=== PATIENT | female | born 1990 | race Caucasian/White ===

== ENCOUNTER 2021-08-27 12:53 | Inpatient (IN) | payer MEDICAID, SELFPAY ==
[~2021-08-27] VITALS: Ht 170.2 cm; Wt 50.1 kg
[~2021-08-27 12:53] MED LIST: BENZ1TAB42 IM; COGENTIN IM; CYPR4TAB PO; EFFEXOR XR PO; FLUO10TA2 OR; HALD5INJ2 IM; HALO10TA4 IM; HALO10TA4 OR; HALO1TAB21 PO; VITMTA PO; ZYPR5TAB OR
[2021-08-27 13:37] LABS: HEMATOCRIT 42.7 % (36.0-47.0); HEMOGLOBIN 13.9 g/dl (12.0-15.5); MEAN CORPUSCULAR HEMOGLOBIN 30.3 pg (27.0-33.0); MEAN CORPUSCULAR HGB CONC 32.6 g/dl (32.0-36.5); MEAN CORPUSCULAR VOLUME 93.2 fl (80.0-96.0); PLATELET COUNT, AUTOMATED 291 10^3/uL (150-450); RED BLOOD COUNT 4.58 10^6/uL (4.00-5.40); WHITE BLOOD COUNT 10.7 10^3/uL (4.0-10.0)
[2021-08-27 14:06] LABS: HCG, SERUM QUALITATIVE NEGATIVE (NEGATIVE); RSV AMPLIFICATION NEGATIVE (NEGATIVE)
[2021-08-27 14:10] LABS: ACETAMINOPHEN LEVEL < 2.0 UG/ML (10.0-30.0); ALBUMIN 3.8 GM/DL (3.2-5.2); ALT/SGPT 24 U/L (12-78); BILIRUBIN,DIRECT 0.1 MG/DL (0.0-0.2); BILIRUBIN,TOTAL 0.3 MG/DL (0.2-1.0); BLOOD UREA NITROGEN 13 MG/DL (7-18); CARBON DIOXIDE LEVEL 29 MEQ/L (21-32); CHLORIDE LEVEL 107 MEQ/L (98-107); CREATININE FOR GFR 1.02 MG/DL (0.55-1.30); ETHYL ALCOHOL (ETHANOL) < 0.003 % (0.000-0.010); GLOMERULAR FILTRATION RATE > 60.0 (>60); GLUCOSE, FASTING 113 MG/DL (70-100); POTASSIUM SERUM 4.2 MEQ/L (3.5-5.1); SALICYLATE LEVEL < 1.7 MG/DL (5.0-30.0); SODIUM LEVEL 141 MEQ/L (136-145); TOTAL PROTEIN 7.6 GM/DL (6.4-8.2)
[2021-08-27] MEDS ORDERED: MOM 30ML SUSPENSION UDC PO PRN (21:05)
[2021-08-27] MEDS ORDERED: OLANZapine ORAL DISINTEGRATING TAB 5MG PO PRN (21:05)
[2021-08-27] MEDS ORDERED: ACETAMINOPHEN TAB 650MG DOSE (2X325MG) PO PRN (21:05)
[2021-08-27] MEDS ORDERED: MAALOX 30 ML SUSP *UDC PO PRN (21:05)
[2021-08-27] MEDS ORDERED: traZODone 50 MG TAB PO PRN (21:05)
[2021-08-27 23:00] VITALS: BP 128/72
[2021-08-28] MEDS ORDERED: LORazepam 1 MG TAB PO PRN (01:20)
[2021-08-28 06:22] VITALS: BP 108/64
[2021-08-28] MEDS: OLANZapine 5 MG TAB PO SCH ×2 (09:00→21:00)
[2021-08-28 16:30] VITALS: BP 102/60
[2021-08-28] MEDS ORDERED: OLANZapine 2.5MG TABLET PO SCH (21:00)
[2021-08-29] MEDS: OLANZapine 5 MG TAB PO SCH ×3 (09:00→21:00)
[2021-08-30 06:00] VITALS: BP 118/73
[2021-08-30] MEDS: OLANZapine 5 MG TAB PO SCH (09:00)
[2021-08-30] MEDS ORDERED: LORazepam 1 MG TAB PO PRN (12:00)
[2021-08-30] MEDS: LORazepam 1 MG TAB PO SCH ×2 (14:35→21:00)
[2021-08-30 16:18] VITALS: BP 100/71
[2021-08-31 06:17] VITALS: BP 118/79
[2021-08-31 07:30] LABS: ALBUMIN 3.8 GM/DL (3.2-5.2); ALT/SGPT 25 U/L (12-78); BILIRUBIN,TOTAL 0.3 MG/DL (0.2-1.0); BLOOD UREA NITROGEN 17 MG/DL (7-18); CALCIUM LEVEL 9.2 MG/DL (8.5-10.1); CARBON DIOXIDE LEVEL 24 MEQ/L (21-32); CHLORIDE LEVEL 110 MEQ/L (98-107); CREATININE FOR GFR 0.85 MG/DL (0.55-1.30); GLOMERULAR FILTRATION RATE > 60.0 (>60); GLUCOSE, FASTING 92 MG/DL (70-100); POTASSIUM SERUM 4.1 MEQ/L (3.5-5.1); SODIUM LEVEL 143 MEQ/L (136-145); TOTAL PROTEIN 7.9 GM/DL (6.4-8.2)
[2021-08-31] MEDS: LORazepam 1 MG TAB PO SCH ×2 (09:00→20:27)
[2021-08-31 16:08] VITALS: BP 117/73
[2021-09-01] MEDS: LORazepam 1 MG TAB PO SCH ×2 (09:00→22:06)
[2021-09-01 16:02] VITALS: BP 113/77
[2021-09-02 06:32] VITALS: BP 119/64
[2021-09-02] MEDS: LORazepam 1 MG TAB PO SCH ×2 (09:00→21:00)
[2021-09-03 06:00] VITALS: BP 109/72
[2021-09-03] MEDS: LORazepam 1 MG TAB PO SCH ×2 (09:00→21:00)
[2021-09-04 06:32] VITALS: BP 131/74
[2021-09-04] MEDS: LORazepam 1 MG TAB PO SCH (09:00)
[2021-09-04] MEDS ORDERED: HALOPERIDOL 5MG/ML VIAL (J1630 PER 1) IM ONE (09:30)
[2021-09-04] MEDS ORDERED: LORazepam 2 MG/ML VIAL IM ONE (09:45)
[2021-09-04] MEDS: HALOPERIDOL 5MG/ML VIAL (J1630 PER 1) IM SCH (21:00)
[2021-09-05 06:36] VITALS: BP 110/59
[2021-09-05] MEDS: HALOPERIDOL 5MG/ML VIAL (J1630 PER 1) IM SCH ×2 (09:05→21:03)
[2021-09-06 06:46] VITALS: BP 111/67
[2021-09-06] MEDS ORDERED: BENZTROPINE MESYLATE 2MG/2ML VIAL IM STA (09:47)
[2021-09-06] MEDS: HALOPERIDOL 5MG/ML VIAL (J1630 PER 1) IM SCH ×2 (10:13→22:07)
[2021-09-06] MEDS ORDERED: BENZTROPINE MESYLATE 2MG/2ML VIAL IM PRN (12:10)
[2021-09-06 18:45] VITALS: BP 132/80
[2021-09-06] MEDS ORDERED: BENZTROPINE MESYLATE 2MG/2ML VIAL IM ONE (21:00)
[2021-09-07 00:03] VITALS: BP 127/86
[2021-09-07 06:00] VITALS: BP 108/73
[2021-09-07] MEDS: HALOPERIDOL 5MG/ML VIAL (J1630 PER 1) IM SCH ×2 (10:06→22:14)
[2021-09-08 06:33] VITALS: BP 95/64
[2021-09-08] MEDS: HALOPERIDOL 5MG/ML VIAL (J1630 PER 1) IM SCH ×2 (10:02→22:08)
[2021-09-09 06:41] VITALS: BP 99/68
[2021-09-09] MEDS: HALOPERIDOL 5MG/ML VIAL (J1630 PER 1) IM SCH (09:16)
[2021-09-09 16:23] VITALS: BP 136/74
[2021-09-09] MEDS: BENZTROPINE 1 MG TAB PO SCH (20:19)
[2021-09-10 06:27] VITALS: BP 97/63
[2021-09-10] MEDS: BENZTROPINE 1 MG TAB PO SCH ×2 (07:55→22:34)
[2021-09-10 16:30] VITALS: BP 91/65
[2021-09-11 06:53] VITALS: BP 101/68
[2021-09-11] MEDS: BENZTROPINE 1 MG TAB PO SCH ×2 (10:13→21:45)
[2021-09-11 19:03] VITALS: BP 96/67
[2021-09-12 07:04] VITALS: BP 99/59
[2021-09-12] MEDS: BENZTROPINE 1 MG TAB PO SCH ×2 (09:45→20:28)
[2021-09-12 18:47] VITALS: BP 120/82
[2021-09-13 06:19] VITALS: BP 93/63
[2021-09-13] MEDS: BENZTROPINE 1 MG TAB PO SCH ×2 (09:42→21:12)
[2021-09-13 16:39] VITALS: BP 92/60
[2021-09-14 07:02] VITALS: BP 103/67
[2021-09-14] MEDS: BENZTROPINE 1 MG TAB PO SCH ×2 (10:03→20:14)
[2021-09-14 16:08] VITALS: BP 96/60
[2021-09-15 06:00] VITALS: BP 90/57
[2021-09-15] MEDS: BENZTROPINE 1 MG TAB PO SCH ×2 (07:52→20:11)
[2021-09-15 16:15] VITALS: BP 99/68
[2021-09-16 06:52] VITALS: BP 103/67
[2021-09-16] MEDS: BENZTROPINE 1 MG TAB PO SCH ×2 (08:39→20:08)
[2021-09-16 19:12] VITALS: BP 120/80
[2021-09-17 06:42] VITALS: BP 101/63
[2021-09-17] MEDS: BENZTROPINE 1 MG TAB PO SCH ×2 (08:12→20:38)
[2021-09-17 18:04] VITALS: BP 120/70
[2021-09-18 06:52] VITALS: BP 98/59
[2021-09-18] MEDS: BENZTROPINE 1 MG TAB PO SCH ×2 (08:21→19:55)
[2021-09-19 06:29] VITALS: BP 97/61
[2021-09-19] MEDS: BENZTROPINE 1 MG TAB PO SCH ×2 (08:27→20:02)
[2021-09-19 15:09] VITALS: BP 104/62
[2021-09-20 06:06] VITALS: BP 99/56
[2021-09-20] MEDS: BENZTROPINE 1 MG TAB PO SCH ×2 (08:11→19:58)
[2021-09-20 18:54] VITALS: BP 124/84
[2021-09-21 06:28] VITALS: BP 99/67
[2021-09-21] MEDS: BENZTROPINE 1 MG TAB PO SCH ×2 (08:05→20:10)
[2021-09-21 18:38] VITALS: BP 120/82
[2021-09-22 06:00] VITALS: BP 91/54
[2021-09-22] MEDS: BENZTROPINE 1 MG TAB PO SCH ×2 (08:05→19:54)
[2021-09-23 06:34] VITALS: BP 138/78
[2021-09-23] MEDS: BENZTROPINE 1 MG TAB PO SCH ×2 (08:29→19:59)
[2021-09-23 16:45] VITALS: BP 100/64
[2021-09-24 06:31] VITALS: BP 113/73
[2021-09-24] MEDS: BENZTROPINE 1 MG TAB PO SCH ×2 (08:09→19:55)
[2021-09-25 07:13] VITALS: BP 93/55
[2021-09-25] MEDS: BENZTROPINE 1 MG TAB PO SCH ×2 (08:46→20:31)
[2021-09-25] MEDS ORDERED: LORazepam 1 MG TAB PO ONE (11:30)
[2021-09-25 16:21] VITALS: BP 96/62
[2021-09-26] MEDS: BENZTROPINE 1 MG TAB PO SCH ×2 (08:27→20:21)
[2021-09-26 18:24] VITALS: BP 130/72
[2021-09-27 06:57] VITALS: BP 103/66
[2021-09-27] MEDS: BENZTROPINE 1 MG TAB PO SCH ×2 (08:06→21:00)
[2021-09-27 16:11] VITALS: BP 110/67
[2021-09-27] MEDS ORDERED: diphenhydrAMINE 50MG CAP PO STA (17:51)
[2021-09-27] MEDS ORDERED: LORazepam 2 MG TAB PO STA (17:51)
[2021-09-28 06:13] VITALS: BP 91/61
[2021-09-28] MEDS: BENZTROPINE 1 MG TAB PO SCH ×2 (08:31→19:52)
[2021-09-28 16:59] VITALS: BP 94/65
[2021-09-29 06:28] VITALS: BP 93/58
[2021-09-29] MEDS: BENZTROPINE 1 MG TAB PO SCH ×2 (08:12→20:23)
[2021-09-29] MEDS: OLANZapine ORAL DISINTEGRATING TAB 5MG PO PRN (10:48)
[2021-09-29 16:33] VITALS: BP 111/75
[2021-09-30 06:26] VITALS: BP 92/61
[2021-09-30] MEDS: BENZTROPINE 1 MG TAB PO SCH ×2 (08:13→21:16)
[2021-09-30] MEDS: OLANZapine ORAL DISINTEGRATING TAB 5MG PO PRN (09:18)
[2021-10-01 06:33] VITALS: BP 110/68
[2021-10-01] MEDS: BENZTROPINE 1 MG TAB PO SCH ×2 (08:21→21:26)
[2021-10-01] MEDS ORDERED: HALOPERIDOL 5MG/ML VIAL (J1630 PER 1) IM STA (10:04)
[2021-10-01] MEDS ORDERED: LORazepam 2 MG/ML VIAL IM STA (10:04)
[2021-10-02 06:51] VITALS: BP 95/62
[2021-10-02] MEDS: BENZTROPINE 1 MG TAB PO SCH ×2 (08:08→20:18)
[2021-10-02] MEDS: OLANZapine ORAL DISINTEGRATING TAB 5MG PO PRN (09:05)
[2021-10-02] MEDS ORDERED: LORazepam 2 MG TAB PO STA (11:54)
[2021-10-02] MEDS ORDERED: diphenhydrAMINE 25MG CAP PO ONE (11:55)
[2021-10-02 16:33] VITALS: BP 91/59
[2021-10-03 06:23] VITALS: BP 133/80
[2021-10-03] MEDS: BENZTROPINE 1 MG TAB PO SCH ×2 (08:00→20:01)
[2021-10-03 18:10] VITALS: BP 112/66
[2021-10-04 06:30] VITALS: BP 105/65
[2021-10-04] MEDS: BENZTROPINE 1 MG TAB PO SCH ×2 (08:03→20:06)
[2021-10-04] MEDS: OLANZapine ORAL DISINTEGRATING TAB 5MG PO PRN (08:46)
[2021-10-04] MEDS ORDERED: LORazepam 2 MG TAB PO STA (08:49)
[2021-10-04] MEDS ORDERED: diphenhydrAMINE 50MG CAP PO STA (08:49)
[2021-10-04 18:32] VITALS: BP 130/78
[2021-10-05 07:10] VITALS: BP 111/66
[2021-10-05] MEDS: BENZTROPINE 1 MG TAB PO SCH ×2 (08:35→19:47)
[2021-10-05] MEDS: OLANZapine ORAL DISINTEGRATING TAB 5MG PO PRN (08:37)
[2021-10-05 18:13] VITALS: BP 111/69
[2021-10-06 06:30] VITALS: BP 96/70
[2021-10-06] MEDS: BENZTROPINE 1 MG TAB PO SCH ×2 (08:05→20:01)
[2021-10-06] MEDS: OLANZapine ORAL DISINTEGRATING TAB 5MG PO PRN (08:49)
[2021-10-06 18:16] VITALS: BP 128/74
[2021-10-07 06:39] VITALS: BP 118/69
[2021-10-07] MEDS: BENZTROPINE 1 MG TAB PO SCH ×2 (07:52→19:57)
[2021-10-07] MEDS ORDERED: diphenhydrAMINE 50MG CAP PO STA (08:21)
[2021-10-07] MEDS ORDERED: LORazepam 2 MG TAB PO STA (08:21)
[2021-10-07 16:12] VITALS: BP 111/72
[2021-10-08 06:12] VITALS: BP 94/64
[2021-10-08] MEDS: BENZTROPINE 1 MG TAB PO SCH ×2 (07:17→19:49)
[2021-10-08 17:14] VITALS: BP 110/70
[2021-10-09 06:28] VITALS: BP 102/68
[2021-10-09] MEDS: OLANZapine ORAL DISINTEGRATING TAB 5MG PO PRN (07:36)
[2021-10-09] MEDS: BENZTROPINE 1 MG TAB PO SCH ×2 (08:06→20:00)
[2021-10-09 17:24] VITALS: BP 102/57
[2021-10-10 06:49] VITALS: BP 98/60
[2021-10-10] MEDS: BENZTROPINE 1 MG TAB PO SCH ×2 (08:11→20:09)
[2021-10-10 18:00] VITALS: BP 117/64
[2021-10-11 06:00] VITALS: BP 108/65
[2021-10-11] MEDS: BENZTROPINE 1 MG TAB PO SCH ×2 (08:27→19:57)
[2021-10-11] MEDS: LORazepam 2 MG TAB PO STA ×2 (08:44→08:47)
[2021-10-11] MEDS ORDERED: LORazepam 2 MG/ML VIAL IM STA (08:52)
[2021-10-11 18:00] VITALS: BP 106/71
[2021-10-12 06:52] VITALS: BP 116/74
[2021-10-12] MEDS: BENZTROPINE 1 MG TAB PO SCH ×2 (08:14→21:08)
[2021-10-12] MEDS: OLANZapine ORAL DISINTEGRATING TAB 5MG PO PRN ×2 (11:15→17:58)
[2021-10-12] MEDS ORDERED: HALOPERIDOL 5MG/ML VIAL (J1630 PER 1) IM ONE (11:30)
[2021-10-12] MEDS ORDERED: LORazepam 2 MG/ML VIAL IM ONE (11:30)
[2021-10-12 12:04] VITALS: BP 116/74
[2021-10-12 16:03] VITALS: BP 110/66
[2021-10-13 06:07] VITALS: BP 140/75
[2021-10-13] MEDS: BENZTROPINE 1 MG TAB PO SCH ×2 (08:22→21:48)
[2021-10-13] MEDS: OLANZapine ORAL DISINTEGRATING TAB 5MG PO PRN ×2 (08:54→18:52)
[2021-10-13 15:41] VITALS: BP 99/72
[2021-10-14 06:27] VITALS: BP 108/77
[2021-10-14] MEDS: BENZTROPINE 1 MG TAB PO SCH ×2 (08:21→20:00)
[2021-10-14] MEDS: OLANZapine ORAL DISINTEGRATING TAB 5MG PO PRN (17:51)
[2021-10-15 06:50] VITALS: BP 123/77
[2021-10-15] MEDS: BENZTROPINE 1 MG TAB PO SCH ×2 (08:03→20:14)
[2021-10-15] MEDS: OLANZapine ORAL DISINTEGRATING TAB 5MG PO PRN (10:10)
[2021-10-16 06:41] VITALS: BP 105/70
[2021-10-16] MEDS: BENZTROPINE 1 MG TAB PO SCH ×2 (08:11→20:04)
[2021-10-16] MEDS: OLANZapine ORAL DISINTEGRATING TAB 5MG PO PRN (08:34)
[2021-10-16 18:01] VITALS: BP 125/57
[2021-10-17 06:02] VITALS: BP 112/77
[2021-10-17] MEDS: BENZTROPINE 1 MG TAB PO SCH ×2 (08:12→20:10)
[2021-10-17] MEDS: OLANZapine ORAL DISINTEGRATING TAB 5MG PO PRN (08:38)
[2021-10-17 09:32] LABS: BASO % 0.5 % (0.0-1.0); HEMATOCRIT 40.1 % (36.0-47.0); HEMOGLOBIN 12.7 g/dl (12.0-15.5); LYMPH # 1.5 10^3/uL (1.5-5.0); LYMPH % 22.9 % (24.0-44.0); MEAN CORPUSCULAR HEMOGLOBIN 30.1 pg (27.0-33.0); MEAN CORPUSCULAR HGB CONC 31.7 g/dl (32.0-36.5); MONO # 0.4 10^3/uL (0.0-0.8); MONO % 6.3 % (2.0-8.0); NEUTROPHILS # 4.4 10^3/uL (1.5-8.5); NEUTROPHILS % 70.1 % (36.0-66.0); PLATELET COUNT, AUTOMATED 295 10^3/uL (150-450); RED BLOOD COUNT 4.22 10^6/uL (4.00-5.40); WHITE BLOOD COUNT 6.3 10^3/uL (4.0-10.0)
[2021-10-17 09:42] LABS: ALBUMIN 3.7 GM/DL (3.2-5.2); ALT/SGPT 47 U/L (12-78); BILIRUBIN,TOTAL 0.5 MG/DL (0.2-1.0); BLOOD UREA NITROGEN 16 MG/DL (7-18); CALCIUM LEVEL 9.4 MG/DL (8.5-10.1); CARBON DIOXIDE LEVEL 29 MEQ/L (21-32); CHLORIDE LEVEL 106 MEQ/L (98-107); CHOLESTEROL LEVEL 190 MG/DL (<200); CHOLESTEROL RISK RATIO 2.533 (<5); CREATININE FOR GFR 0.86 MG/DL (0.55-1.30); GLOMERULAR FILTRATION RATE > 60.0 (>60); GLUCOSE, FASTING 126 MG/DL (70-100); HDL CHOLESTEROL 75 MG/DL (>40); LDL CHOLESTEROL 101 MG/DL (<100); NON-HDL-C 115 MG/DL; POTASSIUM SERUM 4.1 MEQ/L (3.5-5.1); SODIUM LEVEL 142 MEQ/L (136-145); TOTAL PROTEIN 7.9 GM/DL (6.4-8.2); TRIGLYCERIDES LEVEL 69 MG/DL (<150)
[2021-10-17] MEDS ORDERED: LORazepam 2 MG TAB PO STA (10:07)
[2021-10-17 18:17] VITALS: BP 140/78
[2021-10-18 06:52] VITALS: BP 143/92
[2021-10-18] MEDS: BENZTROPINE 1 MG TAB PO SCH ×2 (08:10→20:35)
[2021-10-18] MEDS: OLANZapine ORAL DISINTEGRATING TAB 5MG PO PRN (08:15)
[2021-10-18 18:00] VITALS: BP 131/81
[2021-10-19 06:00] VITALS: BP 109/61
[2021-10-19] MEDS: BENZTROPINE 1 MG TAB PO SCH ×2 (08:07→19:57)
[2021-10-19 18:00] VITALS: BP 93/62
[2021-10-20 06:48] VITALS: BP 90/60
[2021-10-20] MEDS: BENZTROPINE 1 MG TAB PO SCH ×2 (08:04→20:24)
[2021-10-20 18:00] VITALS: BP 109/70
[2021-10-21 06:00] VITALS: BP 104/68
[2021-10-21] MEDS: BENZTROPINE 1 MG TAB PO SCH ×2 (08:17→20:11)
[2021-10-21 18:00] VITALS: BP 101/68
[2021-10-22 06:19] VITALS: BP 93/59
[2021-10-22] MEDS: BENZTROPINE 1 MG TAB PO SCH ×2 (08:16→20:10)
[2021-10-22 18:00] VITALS: BP 104/72
[2021-10-23 06:31] VITALS: BP 120/71
[2021-10-23] MEDS: BENZTROPINE 1 MG TAB PO SCH ×2 (08:01→19:49)
[2021-10-23 17:33] VITALS: BP 109/68
[2021-10-24 07:10] VITALS: BP 94/56
[2021-10-24] MEDS: BENZTROPINE 1 MG TAB PO SCH ×2 (08:13→20:33)
[2021-10-24 17:17] VITALS: BP 107/67
[2021-10-25 07:16] VITALS: BP 109/67
[2021-10-25] MEDS: BENZTROPINE 1 MG TAB PO SCH ×2 (08:00→20:23)
[2021-10-25 18:01] VITALS: BP 119/62
[2021-10-26 06:19] VITALS: BP 97/73
[2021-10-26] MEDS: BENZTROPINE 1 MG TAB PO SCH ×2 (07:58→20:12)
[2021-10-26 18:43] VITALS: BP 111/75
[2021-10-27 06:39] VITALS: BP 102/72
[2021-10-27] MEDS: BENZTROPINE 1 MG TAB PO SCH ×2 (08:03→20:46)
[2021-10-27 18:58] VITALS: BP 101/73
[2021-10-28 06:26] VITALS: BP 113/68
[2021-10-28] MEDS: BENZTROPINE 1 MG TAB PO SCH ×2 (07:58→20:35)
[2021-10-28 17:57] VITALS: BP 106/74
[2021-10-29 06:35] VITALS: BP 98/72
[2021-10-29] MEDS: BENZTROPINE 1 MG TAB PO SCH ×2 (08:13→20:06)
[2021-10-30 06:58] VITALS: BP 115/80
[2021-10-30] MEDS: BENZTROPINE 1 MG TAB PO SCH ×2 (08:04→20:07)
[2021-10-30 12:05] VITALS: BP 115/80
[2021-10-30 18:00] VITALS: BP 121/79
[2021-10-31 06:16] VITALS: BP 108/68
[2021-10-31 06:23] VITALS: BP 108/68
[2021-10-31] MEDS: BENZTROPINE 1 MG TAB PO SCH ×2 (07:54→20:05)
[2021-10-31 18:29] VITALS: BP 92/59
[2021-11-01 06:40] VITALS: BP 98/69
[2021-11-01] MEDS: BENZTROPINE 1 MG TAB PO SCH ×2 (08:00→20:25)
[2021-11-01 18:58] VITALS: BP 122/82
[2021-11-02 06:46] VITALS: BP 112/79
[2021-11-02] MEDS: BENZTROPINE 1 MG TAB PO SCH ×2 (08:01→20:40)
[2021-11-02 18:00] VITALS: BP 104/64
[2021-11-03 07:08] VITALS: BP 114/77
[2021-11-03] MEDS: BENZTROPINE 1 MG TAB PO SCH ×2 (08:01→20:22)
[2021-11-03 18:00] VITALS: BP 110/77
[2021-11-04 07:07] VITALS: BP 101/75
[2021-11-04] MEDS: BENZTROPINE 1 MG TAB PO SCH ×2 (08:02→20:10)
[2021-11-04 16:20] VITALS: BP 115/77
[2021-11-05 06:19] VITALS: BP 102/68
[2021-11-05] MEDS: BENZTROPINE 1 MG TAB PO SCH ×2 (08:00→20:47)
[2021-11-05 16:52] VITALS: BP 106/65
[2021-11-06 06:31] VITALS: BP 111/79
[2021-11-06] MEDS: BENZTROPINE 1 MG TAB PO SCH ×2 (07:53→20:08)
[2021-11-06 16:49] VITALS: BP 100/70
[2021-11-07 07:23] VITALS: BP 107/74
[2021-11-07] MEDS: BENZTROPINE 1 MG TAB PO SCH ×2 (07:46→20:34)
[2021-11-07] MEDS: OLANZapine ORAL DISINTEGRATING TAB 5MG PO PRN (09:15)
[2021-11-07 17:44] VITALS: BP 121/77
[2021-11-08 07:03] VITALS: BP 105/68
[2021-11-08] MEDS: BENZTROPINE 1 MG TAB PO SCH ×2 (08:01→20:02)
[2021-11-08 16:45] VITALS: BP 111/77
[2021-11-09 07:02] VITALS: BP 103/66
[2021-11-09] MEDS: BENZTROPINE 1 MG TAB PO SCH ×2 (08:07→20:13)
[2021-11-09 16:38] VITALS: BP 121/82
[2021-11-10 07:08] VITALS: BP 110/80
[2021-11-10] MEDS: BENZTROPINE 1 MG TAB PO SCH ×2 (07:52→20:43)
[2021-11-10 16:38] VITALS: BP 115/80
[2021-11-11 06:35] VITALS: BP 118/81
[2021-11-11] MEDS: BENZTROPINE 1 MG TAB PO SCH ×2 (07:46→20:34)
[2021-11-11 18:00] VITALS: BP 100/64
[2021-11-12 07:04] VITALS: BP 127/68
[2021-11-12] MEDS: BENZTROPINE 1 MG TAB PO SCH ×2 (08:00→20:56)
[2021-11-13 06:42] VITALS: BP 109/75
[2021-11-13] MEDS: BENZTROPINE 1 MG TAB PO SCH ×2 (08:09→20:05)
[2021-11-13 18:14] VITALS: BP 108/70
[2021-11-14 06:31] VITALS: BP 114/79
[2021-11-14] MEDS: BENZTROPINE 1 MG TAB PO SCH ×2 (07:53→20:10)
[2021-11-14 16:43] VITALS: BP 102/79
[2021-11-15 06:16] VITALS: BP 109/72
[2021-11-15] MEDS: BENZTROPINE 1 MG TAB PO SCH ×2 (08:00→19:54)
[2021-11-15 18:14] VITALS: BP 115/70
[2021-11-16 06:20] VITALS: BP 104/65
[2021-11-16] MEDS: BENZTROPINE 1 MG TAB PO SCH ×2 (07:40→20:01)
[2021-11-16 18:00] VITALS: BP 103/68
[2021-11-17 06:53] VITALS: BP 113/73
[2021-11-17] MEDS: BENZTROPINE 1 MG TAB PO SCH ×2 (07:34→19:56)
[2021-11-18 06:10] VITALS: BP 108/72
[2021-11-18] MEDS: BENZTROPINE 1 MG TAB PO SCH ×2 (07:50→20:06)
[2021-11-18 16:10] VITALS: BP 107/70
[2021-11-19 06:13] VITALS: BP 109/66
[2021-11-19] MEDS ORDERED: HALO5TAB33 PO ×2 (06:36→10:10)
[2021-11-19] MEDS ORDERED: HALO10TA20 PO ×2 (06:36→10:10)
[2021-11-19] MEDS ORDERED: BENZ-52 PO ×2 (06:36→10:10)
[2021-11-19] MEDS ORDERED: LORazepam 1 MG TAB PO ONE (07:40)
[2021-11-19] MEDS: BENZTROPINE 1 MG TAB PO SCH (07:51)
[2021-11-19] MEDS ORDERED: HOME MED LIST COMPLETE! XX SCH (10:10)
[2021-11-19] MEDS ORDERED: OLAN5ZYD PO (10:10)
[2021-11-19] MEDS ORDERED: TRAZ1TAB10 PO (10:10)
== END 2021-11-19 13:23 | DRG 750 ==
LOC: M ED 12:53 → M ED INP 21:03 → M PSY 23:00
PROVIDERS: ADMIT Psychiatry & Neurology Psychiatry; ATTEND Psychiatry & Neurology Psychiatry
DX: F20.0 Paranoid schizophrenia (principal); D72.829 Elevated white blood cell count, unspecified; Z79.899 Other long term (current) drug therapy; F20.2 Catatonic schizophrenia; F94.0 Selective mutism

== ENCOUNTER 2024-08-25 00:19 | Inpatient (IN) | payer MEDICAID, OTHER ==
[~2024-08-25] VITALS: Ht 162.6 cm; Wt 51.5 kg
[~2024-08-25 00:19] MED LIST changes: +BENZ1TAB5 PO; +HALO10TA20 PO; +HALO5TAB33 PO; +OLAN5ZYD PO; +TRAZ1TAB10 PO
[2024-08-25 01:23] LABS: HEMATOCRIT 28.5 % (36.0-47.0); HEMOGLOBIN 8.5 g/dl (12.0-15.5); MEAN CORPUSCULAR HEMOGLOBIN 24.4 pg (27.0-33.0); MEAN CORPUSCULAR HGB CONC 29.8 g/dl (32.0-36.5); MEAN CORPUSCULAR VOLUME 81.7 fl (80.0-96.0); PLATELET COUNT, AUTOMATED 402 10^3/uL (150-450); RED BLOOD COUNT 3.49 10^6/uL (4.00-5.40); WHITE BLOOD COUNT 10.3 10^3/uL (4.0-10.0)
[2024-08-25 01:43] LABS: AMPHETAMINES LEVEL URINE NEGATIVE (NEGATIVE); BARBITURATES URINE NEGATIVE (NEGATIVE); BENZODIAZEPINES URINE NEGATIVE (NEGATIVE); CANNABINOIDS URINE NEGATIVE (NEGATIVE); COCAINE METABOLITE URINE NEGATIVE (NEGATIVE); METHADONE URINE NEGATIVE (NEGATIVE); OPIATES URINE NEGATIVE (NEGATIVE); PHENCYCLIDINE URINE NEGATIVE (NEGATIVE)
[2024-08-25 01:46] LABS: ETHYL ALCOHOL (ETHANOL) < 0.003 % (0.000-0.010)
[2024-08-25 01:47] LABS: ALBUMIN 3.6 G/DL (3.2-5.2); ALKALINE PHOSPHATASE 62 U/L (35-104); ALT/SGPT 14 U/L (7.0-40); AST/SGOT 16 U/L (<34); BILIRUBIN,DIRECT < 0.1 MG/DL (<0.4); BILIRUBIN,TOTAL 0.3 MG/DL (0.3-1.2); BLOOD UREA NITROGEN 14 MG/DL (9-23); CALCIUM LEVEL 9.1 MG/DL (8.5-10.1); CARBON DIOXIDE LEVEL 27 MMOL/L (20-31); CHLORIDE LEVEL 104 MMOL/L (98-107); CREATININE FOR GFR 0.74 MG/DL (0.55-1.30); GLOMERULAR FILTRATION RATE > 60.0 (>60); GLUCOSE, FASTING 118 MG/DL (60-100); POTASSIUM SERUM 4.1 MMOL/L (3.5-5.1); SALICYLATE LEVEL < 3.0 MG/DL (<30); SODIUM LEVEL 139 MMOL/L (136-145); TOTAL PROTEIN 7.3 G/DL (5.7-8.2)
[2024-08-25 02:23] LABS: HCG, SERUM QUALITATIVE NEGATIVE (NEGATIVE)
[2024-08-25] MEDS ORDERED: ACETAMINOPHEN 325 MG TAB PO PRN (03:40)
[2024-08-25] MEDS ORDERED: IBUPROFEN 400MG TAB PO PRN (03:40)
[2024-08-25] MEDS ORDERED: MOM 30ML SUSPENSION UDC PO PRN (03:40)
[2024-08-25] MEDS ORDERED: MAALOX 30 ML SUSP *UDC PO PRN (03:40)
[2024-08-25 04:45] VITALS: BP 118/56; TEMP 97.8; O2SAT 99
[2024-08-25 08:05] LABS: IRON (FE) 22 UG/DL (50-170); PERCENT SATURATION 5.7 % (13.2-45.0); TOTAL IRON BINDING CAPACITY 384 UG/DL (250-425)
[2024-08-25 08:08] LABS: FERRITIN 4.1 NG/ML (7.3-270.7); FOLATE 12.98 NG/ML (>5.4); VITAMIN B12 LEVEL 377 PG/ML (211-911)
[2024-08-25] MEDS ORDERED: HOME MED LIST COMPLETE! XX SCH (08:15)
[2024-08-25 14:58] VITALS: BP 98/61; TEMP 98.7; O2SAT 100
[2024-08-25 15:38] LABS: FREE T4 1.09 NG/DL (0.89-1.76)
[2024-08-25] MEDS: FERROUS SULFATE 325MG TAB PO SCH (16:04)
[2024-08-26 06:22] VITALS: BP 106/53; TEMP 97.9; O2SAT 99
[2024-08-26] MEDS: LIDOCAINE 5% (LIDODERM) PATCH TD SCH (09:00)
[2024-08-26 15:39] VITALS: BP 109/60; TEMP 98.4; O2SAT 98
[2024-08-26] MEDS: traZODone 50 MG TAB PO PRN (20:25)
[2024-08-27 14:10] VITALS: BP 130/72; TEMP 97; O2SAT 87
[2024-08-27] MEDS: BENZTROPINE MESYLATE 2MG/2ML VIAL IM STA ×2 (14:13→14:19)
[2024-08-27] MEDS: diphenhydrAMINE 50MG/ML VIAL IM ONE (14:39)
[2024-08-27 15:41] VITALS: BP 92/55; TEMP 97.6; O2SAT 97
[2024-08-27 15:50] VITALS: BP 100/61; TEMP 97.2; O2SAT 97
[2024-08-27 17:30] LABS: BASO % 0.3 % (0.0-1.0); HEMATOCRIT 31.7 % (36.0-47.0); HEMOGLOBIN 9.4 g/dl (12.0-15.5); LYMPH % 10.1 % (24.0-44.0); MEAN CORPUSCULAR HEMOGLOBIN 24.4 pg (27.0-33.0); MEAN CORPUSCULAR HGB CONC 29.7 g/dl (32.0-36.5); MEAN CORPUSCULAR VOLUME 82.1 fl (80.0-96.0); MONO # 0.5 10^3/uL (0.0-0.8); MONO % 4.7 % (2.0-8.0); NEUTROPHILS # 8.1 10^3/uL (1.5-8.5); NEUTROPHILS % 84.5 % (36.0-66.0); PLATELET COUNT, AUTOMATED 394 10^3/uL (150-450); RED BLOOD COUNT 3.86 10^6/uL (4.00-5.40); WHITE BLOOD COUNT 9.6 10^3/uL (4.0-10.0)
[2024-08-27 17:48] LABS: ALBUMIN 3.9 G/DL (3.2-5.2); ALKALINE PHOSPHATASE 73 U/L (35-104); ALT/SGPT 16 U/L (7.0-40); AST/SGOT 18 U/L (<34); BILIRUBIN,DIRECT 0.1 MG/DL (<0.4); BILIRUBIN,TOTAL 0.5 MG/DL (0.3-1.2); BLOOD UREA NITROGEN 9 MG/DL (9-23); CALCIUM LEVEL 9.4 MG/DL (8.5-10.1); CARBON DIOXIDE LEVEL 28 MMOL/L (20-31); CHLORIDE LEVEL 105 MMOL/L (98-107); CREATININE FOR GFR 0.71 MG/DL (0.55-1.30); GLOMERULAR FILTRATION RATE > 60.0 (>60); GLUCOSE, FASTING 92 MG/DL (60-100); POTASSIUM SERUM 4.7 MMOL/L (3.5-5.1); SODIUM LEVEL 140 MMOL/L (136-145); TOTAL PROTEIN 7.9 G/DL (5.7-8.2)
[2024-08-27 17:50] LABS: FREE T4 1.1 NG/DL (0.89-1.76)
[2024-08-27 17:51] LABS: THYROID STIMULATING HORMONE 3.003 uIU/ML (0.55-4.78)
[2024-08-27 20:00] VITALS: BP 106/67; TEMP 96.5; O2SAT 99
[2024-08-27] MEDS: LORazepam 1 MG TAB PO PRN (20:48)
[2024-08-28 06:00] VITALS: BP 102/64; TEMP 97; O2SAT 99
[2024-08-28 15:02] VITALS: BP 120/75; TEMP 97.9; O2SAT 97
[2024-08-29 06:35] VITALS: BP 101/66; TEMP 97.2; O2SAT 100
[2024-08-29] MEDS: risperiDONE 0.5 MG TAB PO SCH (08:13)
[2024-08-29] MEDS ORDERED: BENZTROPINE 0.5 MG TAB PO PRN (10:25)
[2024-08-29 15:51] VITALS: BP 111/60; TEMP 97.6; O2SAT 92
[2024-08-30 06:32] VITALS: BP 90/54; TEMP 97.2; O2SAT 99
[2024-08-30] MEDS: RISPERIDONE 1 MG TAB PO SCH (08:28)
[2024-08-30 15:45] VITALS: BP 99/60; TEMP 97; O2SAT 98
[2024-08-31 06:48] VITALS: BP 113/57; TEMP 97.9; O2SAT 100
[2024-08-31 10:15] VITALS: BP 113/57; TEMP 97.9; O2SAT 100
[2024-08-31] MEDS: BENZTROPINE 0.5 MG TAB PO SCH (12:09)
[2024-08-31] MEDS: TUBERCULIN PPD 5 UNITS/0.1 ML ID ONE (14:20)
[2024-08-31 15:28] VITALS: BP 110/77; TEMP 97.4; O2SAT 97
[2024-08-31] MEDS: risperiDONE 2 MG TAB PO SCH (20:21)
[2024-09-01 06:32] VITALS: BP 127/66; TEMP 97.2; O2SAT 99
[2024-09-01 14:33] LABS: DEAMIDATED GLIADIN ABS, IgA 2.3 U/mL (<15.0); DEAMIDATED GLIADIN ABS, IgG 4.7 U/mL (<15.0); IMMUNOGLOBULIN A CELIAC 270 mg/dL (47-310); t-TRANSGLUTAMINASE(tTG) IgA < 1.0 U/mL (<15.0); t-TRANSGLUTAMINASE(tTG) IgG < 1.0 U/mL (<15.0)
[2024-09-01 16:22] VITALS: BP 104/68; TEMP 98.5; O2SAT 100
[2024-09-01 19:32] LABS: LYME TOTAL ANTIBODY CIA 4.88 Index (<=0.90)
[2024-09-02 06:50] VITALS: BP 109/70; TEMP 96.8; O2SAT 100
[2024-09-02] MEDS: PPD DOCUMENTATION ENTRY MISC XX SCH (12:00)
[2024-09-02] MEDS: TUBERCULIN PPD 5 UNITS/0.1 ML ID ONE (15:45)
[2024-09-02 17:02] VITALS: BP 113/68; TEMP 97.3; O2SAT 100
[2024-09-02 21:33] LABS: LYME AB IGG BY CIA 6.48 Index (<=0.90); LYME AB IGM BY CIA <= 0.90 Index (<=0.90)
[2024-09-03 07:07] VITALS: BP 120/61; TEMP 97.7; O2SAT 99
[2024-09-03 15:57] VITALS: BP 106/65; TEMP 98; O2SAT 98
[2024-09-04 07:12] VITALS: BP 118/56; TEMP 97; O2SAT 100
[2024-09-04 07:14] VITALS: BP 128/64; TEMP 97.3; O2SAT 95
[2024-09-04] MEDS ORDERED: PPD DOCUMENTATION ENTRY MISC XX SCH (10:00)
[2024-09-04 15:34] VITALS: BP 119/68; TEMP 97.6; O2SAT 97
[2024-09-05 06:43] VITALS: BP 99/58; TEMP 96.9; O2SAT 100
[2024-09-05 15:39] VITALS: BP 98/61; TEMP 97.6; O2SAT 100
[2024-09-05] MEDS: risperiDONE 3 MG TAB PO SCH (21:20)
[2024-09-06 06:38] VITALS: BP 97/59; TEMP 97.4; O2SAT 98
[2024-09-06] MEDS: risperiDONE 2 MG TAB PO SCH (08:06)
[2024-09-06 16:16] VITALS: BP 117/76; TEMP 97.9; O2SAT 98
[2024-09-07 06:30] VITALS: BP 115/57; TEMP 97.9; O2SAT 99
[2024-09-07 15:47] VITALS: BP 96/65; TEMP 97; O2SAT 100
[2024-09-08 06:54] VITALS: BP 107/63; TEMP 97.1; O2SAT 99
[2024-09-08 15:13] VITALS: BP 112/74; TEMP 97; O2SAT 100
[2024-09-09 06:36] VITALS: BP 108/66; TEMP 97.4; O2SAT 99
[2024-09-09 08:39] VITALS: BP 96/58; TEMP 96.8; O2SAT 100
[2024-09-09 10:16] VITALS: BP 107/61; TEMP 97.3; O2SAT 100
[2024-09-09 10:47] LABS: ALBUMIN 3.6 G/DL (3.2-5.2); ALKALINE PHOSPHATASE 70 U/L (35-104); ALT/SGPT 16 U/L (7.0-40); AST/SGOT 12 U/L (<34); BILIRUBIN,TOTAL 0.5 MG/DL (0.3-1.2); BLOOD UREA NITROGEN 13 MG/DL (9-23); CARBON DIOXIDE LEVEL 32 MMOL/L (20-31); CHLORIDE LEVEL 103 MMOL/L (98-107); CREATININE FOR GFR 0.78 MG/DL (0.55-1.30); GLOMERULAR FILTRATION RATE > 90.0 (>60); GLUCOSE, FASTING 92 MG/DL (60-100); POTASSIUM SERUM 4.2 MMOL/L (3.5-5.1); SODIUM LEVEL 140 MMOL/L (136-145); TOTAL PROTEIN 7.1 G/DL (5.7-8.2)
[2024-09-09 15:58] VITALS: BP 110/66; TEMP 97.6; O2SAT 99
[2024-09-10 06:25] VITALS: BP 98/60; TEMP 97.5; O2SAT 99
[2024-09-10 15:51] VITALS: BP 102/61; TEMP 97.4; O2SAT 98
[2024-09-11 06:21] VITALS: BP 128/62; TEMP 97.5; O2SAT 99
[2024-09-11 15:33] VITALS: BP 109/68; TEMP 97.2; O2SAT 100
[2024-09-12 06:39] VITALS: BP 105/60; TEMP 96.8; O2SAT 100
[2024-09-12] MEDS ORDERED: LIDOCAINE 5% (LIDODERM) PATCH TD PRN (09:55)
[2024-09-12 16:01] VITALS: BP 110/76; TEMP 97.5; O2SAT 98
[2024-09-13 06:39] VITALS: BP 109/65; TEMP 98.3; O2SAT 98
[2024-09-13 16:36] VITALS: BP 101/64; TEMP 97.7; O2SAT 99
[2024-09-14 06:51] VITALS: BP 95/62; TEMP 97; O2SAT 100
[2024-09-14 16:01] VITALS: BP 102/66; TEMP 97.2; O2SAT 98
[2024-09-15 06:31] VITALS: BP 111/66; TEMP 97.3; O2SAT 98
[2024-09-15 16:39] VITALS: BP 108/66; TEMP 97.9; O2SAT 98
[2024-09-16 06:29] VITALS: BP 104/67; TEMP 96.6; O2SAT 98
[2024-09-16 15:15] VITALS: BP 116/78; TEMP 97.3; O2SAT 100
[2024-09-17 06:43] VITALS: BP 106/60; TEMP 98.2; O2SAT 100
[2024-09-17 15:50] VITALS: BP 100/66; TEMP 97.9; O2SAT 99
[2024-09-17] MEDS: OLANZapine 5 MG TAB PO PRN (20:52)
[2024-09-17] MEDS: diphenhydrAMINE 25MG CAP PO PRN (21:24)
[2024-09-18 06:46] VITALS: BP 99/58; TEMP 98.7; O2SAT 100
[2024-09-18 16:16] VITALS: BP 102/62; TEMP 98.3; O2SAT 98
[2024-09-19 06:24] VITALS: BP 120/72; TEMP 98.6; O2SAT 100
[2024-09-19 15:06] VITALS: BP 109/65; TEMP 97.9; O2SAT 98
[2024-09-20 06:30] VITALS: BP 115/63; TEMP 97.5; O2SAT 99
[2024-09-20 15:18] VITALS: BP 105/66; TEMP 97.1; O2SAT 100
[2024-09-21 06:48] VITALS: BP 116/65; TEMP 98.3; O2SAT 99
[2024-09-21] MEDS: PALIPERIDONE PAL 234MG/1.5ML INJ (INVEGA)(FREE PSY INPT ONLY) IM ONE (15:04)
[2024-09-21 16:05] VITALS: BP 105/74; TEMP 97.6; O2SAT 100
[2024-09-22 06:32] VITALS: BP 122/69; TEMP 97.2; O2SAT 100
[2024-09-22 16:20] VITALS: BP 109/68; TEMP 98.2; O2SAT 97
[2024-09-23 06:34] VITALS: BP 93/60; TEMP 98.2; O2SAT 100
[2024-09-23 17:32] VITALS: BP 105/60; TEMP 96.9; O2SAT 99
[2024-09-24 06:45] VITALS: BP 97/59; TEMP 98.7; O2SAT 98
[2024-09-24 16:06] VITALS: BP 109/69; TEMP 97.3; O2SAT 100
[2024-09-25 06:47] VITALS: BP 94/57; TEMP 97; O2SAT 99
[2024-09-25 14:39] VITALS: BP 105/65; TEMP 97.2; O2SAT 98
[2024-09-26 07:05] VITALS: BP 106/58; TEMP 97; O2SAT 98
[2024-09-26] MEDS: PALIPERIDONE PAL 156MG/1ML INJ(INVEGA)(FREE PSY INPT ONLY) IM ONE (10:56)
[2024-09-26 17:26] VITALS: BP 110/69; TEMP 97.7; O2SAT 98
[2024-09-27 06:38] VITALS: BP 100/67; TEMP 97; O2SAT 100
[2024-09-27 16:12] VITALS: BP 102/71; TEMP 97.6; O2SAT 99
[2024-09-28 06:38] VITALS: BP 97/63; TEMP 97; O2SAT 100
[2024-09-28 15:49] VITALS: BP 108/66; TEMP 97.1; O2SAT 98
[2024-09-29 06:50] VITALS: BP 105/54; TEMP 97; O2SAT 100
[2024-09-29 15:53] VITALS: BP 108/71; TEMP 97.6; O2SAT 98
[2024-09-30 06:52] VITALS: BP 94/71; TEMP 96.9; O2SAT 100
[2024-09-30] MEDS ORDERED: TRAZ-252 PO (08:26)
[2024-09-30] MEDS ORDERED: INVE234I IM (08:26)
[2024-09-30] MEDS ORDERED: BENZ0.5T2 PO (08:26)
[2024-09-30] MEDS ORDERED: FERR1TAB8 PO (08:26)
== END 2024-09-30 13:30 | disposition home or self-care (01) | DRG 750 ==
LOC: M ED 00:19 → M ED INP 03:38 → M PSY 04:17
PROVIDERS: ADMIT Psychiatry & Neurology Neurology; ATTEND Psychiatry & Neurology Neurology
DX: F20.9 Schizophrenia, unspecified (principal); M25.551 Pain in right hip; D50.9 Iron deficiency anemia, unspecified; M25.851 Other specified joint disorders, right hip; R00.1 Bradycardia, unspecified